=== PATIENT | female | born 1985 | race American Indian/Alaskan Native ===

== ENCOUNTER 2016-08-09 18:37 | Emergency (ER) | payer MEDICAID ==
[2016-08-09 19:50] LABS: Basophils % (Auto) 0.3 % (0.0-1.8); Eosinophils % (Auto) 5.6 % (0.0-4.3); Hematocrit 37.2 % (30.3-42.9); Mean Corpuscular HGB Conc 32 % (30-34); Mean Corpuscular Hemoglobin 29 pg (28-32); Mean Corpuscular Volume 90 fl (79-97); Platelet Count 406 K/mm3 (140-440); Red Blood Count 4.14 M/mm3 (3.65-5.03); Red Cell Distribution Width 16.1 % (13.2-15.2); White Blood Count 6.6 K/mm3 (4.5-11.0)
[2016-08-09 20:00] LABS: INR 0.91 (0.87-1.13)
[2016-08-09 20:01] LABS: Partial Thromboplastin Time 29.7 Sec. (24.2-36.6)
[2016-08-09 20:12] LABS: Anion Gap 18 mmol/L; BUN/Creatinine Ratio 13.33; Blood Urea Nitrogen 8 mg/dL (7-17); Carbon Dioxide 25 mmol/L (22-30); Glucose 106 mg/dL (65-100); Potassium 4.1 mmol/L (3.6-5.0); Sodium 143 mmol/L (137-145)
[2016-08-09] MEDS ORDERED: LOVENOX SUB-Q ONE (20:26)
--- NOTE | 2016-08-09 20:28 | Emergency Department Report ---
ED General Adult HPI - General Chief complaint: Chest Pain Stated complaint: CHEST/CALF PAIN Time Seen by Provider: 08/09/16 20:15 Source: patient, RN notes reviewed Mode of arrival: Wheelchair Limitations: No Limitations - History of Present Illness Initial comments: This is a 31-year-old female. She is previously unknown to me. Recently gave . Has a past medical history of diabetes, asthma, surgical history of cholecystectomy, appendectomy, right salpingectomy, ovarian cystectomy. In June 2016, she was diagnosed at [facility] pulmonary embolus through a nuclear medicine study. Patient indicates this was presumed to be - induced. She has been discharged on Lovenox, and has been compliant with her Lovenox therapy, with the exception of the past 28 hours. As of the time of this dictation, she has missed 3 doses of Lovenox therapy. The patient presents with 2 complaints. Her first complaint is right lower extremity pain. The pain is achy. Does not radiate anywhere. So he worsens with palpation, decreases with rest. No extremity weakness, numbness. There is no tingling. Next complaint is chest pain. The chest pain is central. Patient reports mild nausea but no vomiting. There is no diaphoresis. She has some difficulty with breathing and that she feels that the pain takes her breath away. There is no severe lower abdominal pain. No fevers or chills. No diaphoresis. No irritative or obstructive urinary symptoms. Patient reports no cocaine use. There is no family history of heart disease that she is aware. HEAD OF DRAMA doctor: Dr. Jenkins at [facility] Maternal medicine: [facility] -: Gradual Location: chest, right, lower extremity Quality: aching Consistency: intermittent Improves with: rest Worsens with: movement Associated Symptoms: chest pain - Related Data Previous Rx's Medication Instructions Recorded Last Taken Type Ondansetron [Zofran Odt] 4 mg PO Q8H PRN #10 tab.rapdis 02/29/16 Unknown Rx Enoxaparin [Lovenox] 120 mg SQ Q12HR #30 syringe 08/09/16 Unknown Rx Allergies Allergy/AdvReac Type Severity Reaction Status Date / Time No Known Allergies Allergy Verified 01/01/14 00:22 ED Review of Systems ROS: Stated complaint: CHEST/CALF PAIN Other details as noted in HPI Constitutional: denies: fever Eyes: denies: vision change ENT: denies: epistaxis Respiratory: see HPI Cardiovascular: chest pain Gastrointestinal: denies: abdominal pain Genitourinary: denies: dysuria Musculoskeletal: myalgia Skin: denies: lesions Neurological: denies: weakness Psychiatric: denies: anxiety ED Past Medical Hx - Past Medical History Hx Diabetes: Yes (gestational dm) Hx Asthma: Yes - Surgical History Hx Cholecystectomy: Yes Hx Appendectomy: Yes Additional Surgical History: ovarian cyst removal leep proceedure r) ovary.tube removal csection - Social History Smoking Status: Never Smoker Substance Use Type: None - Medications Home Medications: Home Medications Medication Instructions Recorded Confirmed Last Taken Type Ondansetron [Zofran Odt] 4 mg PO Q8H PRN #10 tab.rapdis 02/29/16 Unknown Rx Enoxaparin [Lovenox] 120 mg SQ Q12HR #30 syringe 08/09/16 Unknown Rx ED Physical Exam - General Limitations: No Limitations General appearance: alert, in no apparent distress - Head Head exam: Present: atraumatic, normocephalic - Eye Eye exam: Present: normal appearance, EOMI. Absent: nystagmus - ENT ENT exam: Present: normal exam, normal orophraynx, mucous membranes moist, normal external ear exam - Neck Neck exam: Present: normal inspection, full ROM. Absent: tenderness, meningismus - Respiratory Respiratory exam: Present: normal lung sounds bilaterally, chest wall tenderness. Absent: respiratory distress, wheezes, rales, rhonchi, stridor - Cardiovascular Cardiovascular Exam: Present: regular rate, normal rhythm, normal heart sounds. Absent: bradycardia, tachycardia, irregular rhythm, systolic murmur, diastolic murmur, rubs, gallop - GI/Abdominal GI/Abdominal exam: Present: soft, normal bowel sounds. Absent: distended, tenderness, guarding, rebound, rigid, pulsatile mass - Extremities Exam Extremities exam: Present: normal inspection, full ROM, normal capillary refill , other (there are 2+ pulses in 4 extremities. The compartments are soft. There is no redness, pus, streaking, asymmetry.). Absent: pedal edema, joint swelling, calf tenderness - Back Exam Back exam: Present: normal inspection, full ROM. Absent: tenderness, CVA tenderness (R), CVA tenderness (L), muscle spasm, paraspinal tenderness, vertebral tenderness - Neurological Exam Neurological exam: Present: alert, oriented X3, normal gait, other (Extraocular movements intact. Tongue midline. No facial droop. Facial sensation intact to light touch in the V1, V2, V3 distribution bilaterally. 5 and 5 strength in 4 extremities.. Sensation is intact to light touch in 4 extremities.). Absent : motor sensory deficit - Psychiatric Psychiatric exam: Present: normal affect, normal mood - Skin Skin exam: Present: warm, dry, intact, normal color. Absent: rash ED Course Vital Signs 08/09/16 08/09/16 08/09/16 18:45 21:48 21:50 Temperature 98.2 F 98.1 F Pulse Rate 88 91 H Respiratory 18 18 18 Rate Blood Pressure 140/96 Blood Pressure 123/86 [Left] O2 Sat by Pulse 100 100 100 Oximetry - Reevaluation(s) Reevaluation #1: 08/09/16 22:03 Differential diagnosis: Pneumonia, GERD, gastritis, right lower extremity DVT, costochondritis, acute coronary syndrome Assessment and plan: 31-year-old female with clinically atypical chest pain, low risk by ANCA score, low risk by heart score, multiple negative cardiac enzymes, unremarkable EKG. Patient has been compliant with her Lovenox therapy with the exception of the past 28 hours. Given this, I think it is unlikely that she has formed a new pulmonary embolus de susan. A d-dimer was negative, I find the patient's clinical history to be low pretest probability, she is saturating consistently well on room air, walks without desaturating, and appears quite comfortable. A right lower extremity DVT study is ordered, but the vascular lab technicians are not currently in house. Therefore, she was treated empirically with Lovenox, and she will be discharged with the Lovenox prescription. she will need to return in the am for the dvt study In addition, she will be given a "good Rx" card to facilitate her Lovenox therapy prescription. She is instructed to follow-up with her outpatient primary care doctor/maternal medicine specialist. I don't believe she requires admission to the hospital for ACS risk stratification, she can follow up with outpatient cardiology or outpatient primary care. 08/09/16 22:08 Reevaluation #2: 08/09/16 22:06 laboratory studies, vital signs, clinical presentation does not appear to be consistent with post delivery preeclampsia. ED Medical Decision Making - Lab Data Result diagrams: 08/09/16 19:38 08/09/16 19:38 Vital Signs 08/09/16 08/09/16 08/09/16 18:45 21:48 21:50 Temperature 98.2 F 98.1 F Pulse Rate 88 91 H Respiratory 18 18 18 Rate Blood Pressure 140/96 Blood Pressure 123/86 [Left] O2 Sat by Pulse 100 100 100 Oximetry Vital Signs 08/09/16 08/09/16 08/09/16 18:45 21:48 21:50 Temperature 98.2 F 98.1 F Pulse Rate 88 91 H Respiratory 18 18 18 Rate Blood Pressure 140/96 Blood Pressure 123/86 [Left] O2 Sat by Pulse 100 100 100 Oximetry Lab Results 08/09/16 08/09/16 08/09/16 Range/Units 19:38 19:38 19:38 WBC 6.6 (4.5-11.0) K/mm3 RBC 4.14 (3.65-5.03) M/mm3 Hgb 12.0 (10.1-14.3) gm/dl Hct 37.2 (30.3-42.9) % MCV 90 (79-97) fl MCH 29 (28-32) pg MCHC 32 (30-34) % RDW 16.1 H (13.2-15.2) % Plt Count 406 (140-440) K/mm3 Lymph % (Auto) 25.6 (13.4-35.0) % [place] % (Auto) 13.9 H (0.0-7.3) % Eos % (Auto) 5.6 H (0.0-4.3) % Baso % (Auto) 0.3 (0.0-1.8) % Lymph # 1.7 (1.2-5.4) K/mm3 [place] # 0.9 H (0.0-0.8) K/mm3 Eos # 0.4 (0.0-0.4) K/mm3 Baso # 0.0 (0.0-0.1) K/mm3 Seg Neutrophils % 54.6 (40.0-70.0) % Seg Neutrophils # 3.6 (1.8-7.7) K/mm3 PT 12.2 (12.2-14.9) Sec. INR 0.91 (0.87-1.13) APTT 29.7 (24.2-36.6) Sec. D-Dimer (0-234) ng/mlDDU Sodium 143 (137-145) mmol/L Potassium 4.1 (3.6-5.0) mmol/L Chloride 104.0 (98-107) mmol/L Carbon Dioxide 25 (22-30) mmol/L Anion Gap 18 mmol/L BUN 8 (7-17) mg/dL Creatinine 0.6 L (0.7-1.2) mg/dL Estimated GFR > 60 ml/min BUN/Creatinine Ratio 13.33 % Glucose 106 H (65-100) mg/dL Calcium 9.0 (8.4-10.2) mg/dL Total Bilirubin (0.1-1.2) mg/dL Direct Bilirubin (0-0.2) mg/dL Indirect Bilirubin mg/dL AST (5-40) units/L ALT (7-56) units/L Alkaline Phosphatase (35-129) units/L Total Creatine Kinase (30-135) units/L Troponin T < 0.010 (0.00-0.029) ng/mL Total Protein (6.3-8.2) g/dL Albumin (3.9-5) g/dL Albumin/Globulin Ratio % Lipase (13-60) units/L 08/09/16 08/09/16 08/09/16 Range/Units 19:38 19:38 19:38 WBC (4.5-11.0) K/mm3 RBC (3.65-5.03) M/mm3 Hgb (10.1-14.3) gm/dl Hct (30.3-42.9) % MCV (79-97) fl MCH (28-32) pg MCHC (30-34) % RDW (13.2-15.2) % Plt Count (140-440) K/mm3 Lymph % (Auto) (13.4-35.0) % [place] % (Auto) (0.0-7.3) % Eos % (Auto) (0.0-4.3) % Baso % (Auto) (0.0-1.8) % Lymph # (1.2-5.4) K/mm3 [place] # (0.0-0.8) K/mm3 Eos # (0.0-0.4) K/mm3 Baso # (0.0-0.1) K/mm3 Seg Neutrophils % (40.0-70.0) % Seg Neutrophils # (1.8-7.7) K/mm3 PT (12.2-14.9) Sec. INR (0.87-1.13) APTT (24.2-36.6) Sec. D-Dimer < 135 (0-234) ng/mlDDU Sodium (137-145) mmol/L Potassium (3.6-5.0) mmol/L Chloride (98-107) mmol/L Carbon Dioxide (22-30) mmol/L Anion Gap mmol/L BUN (7-17) mg/dL Creatinine (0.7-1.2) mg/dL Estimated GFR ml/min BUN/Creatinine Ratio % Glucose (65-100) mg/dL Calcium (8.4-10.2) mg/dL Total Bilirubin 0.4 (0.1-1.2) mg/dL Direct Bilirubin < 0.2 (0-0.2) mg/dL Indirect Bilirubin 0.2 mg/dL AST 25 (5-40) units/L ALT 22 (7-56) units/L Alkaline Phosphatase 63 (35-129) units/L Total Creatine Kinase (30-135) units/L Troponin T < 0.010 (0.00-0.029) ng/mL Total Protein 7.0 (6.3-8.2) g/dL Albumin 3.9 (3.9-5) g/dL Albumin/Globulin Ratio 1.3 % Lipase 30 (13-60) units/L // Range/Units 19:38 WBC (4.5-11.0) K/mm3 RBC (3.65-5.03) M/mm3 Hgb (10.1-14.3) gm/dl Hct (30.3-42.9) % MCV (79-97) fl MCH (28-32) pg MCHC (30-34) % RDW (13.2-15.2) % Plt Count (140-440) K/mm3 Lymph % (Auto) (13.4-35.0) % [place] % (Auto) (0.0-7.3) % Eos % (Auto) (0.0-4.3) % Baso % (Auto) (0.0-1.8) % Lymph # (1.2-5.4) K/mm3 [place] # (0.0-0.8) K/mm3 Eos # (0.0-0.4) K/mm3 Baso # (0.0-0.1) K/mm3 Seg Neutrophils % (40.0-70.0) % Seg Neutrophils # (1.8-7.7) K/mm3 PT (12.2-14.9) Sec. INR (0.87-1.13) APTT (24.2-36.6) Sec. D-Dimer (0-234) ng/mlDDU Sodium (137-145) mmol/L Potassium (3.6-5.0) mmol/L Chloride (98-107) mmol/L Carbon Dioxide (22-30) mmol/L Anion Gap mmol/L BUN (7-17) mg/dL Creatinine (0.7-1.2) mg/dL Estimated GFR ml/min BUN/Creatinine Ratio % Glucose (65-100) mg/dL Calcium (8.4-10.2) mg/dL Total Bilirubin (0.1-1.2) mg/dL Direct Bilirubin (0-0.2) mg/dL Indirect Bilirubin mg/dL AST (5-40) units/L ALT (7-56) units/L Alkaline Phosphatase (35-129) units/L Total Creatine Kinase 119 (30-135) units/L Troponin T (0.00-0.029) ng/mL Total Protein (6.3-8.2) g/dL Albumin (3.9-5) g/dL Albumin/Globulin Ratio % Lipase (13-60) units/L - EKG Data 08/09/16 22:07 normal sinus, 90 bpm, normal intervals, normal axis, not morphologically consistent with STEMI. There is no prior EKG available for comparison. - Radiology Data Radiology results: image reviewed interpreted by me: X-ray chest negative for acute disease. Critical care attestation.: If time is entered above; I have spent that time in minutes in the direct care of this critically ill patient, excluding procedure time. ED Disposition Clinical Impression: Right leg pain, Chest pain Disposition: DISCHARGED TO HOME OR SELFCARE Is pt being admited?: No Does the pt Need Aspirin: No Condition: Stable Instructions: Chest Pain (ED) Additional Instructions: Take the Lovenox therapy as directed. Follow-up with either her primary care doctor for your high risk specialist within the next week. In addition, used the "good Rx" card to help facilitate payment for The Lovenox therapy. Follow-up with a wire spring relay adjuster within the next week as well. I have listed numerous names, phone numbers, addresses of local search engine optimization specialist. Return to the ER right away with new pain, worsened pain, migration of pain, fevers or chills, intractable nausea or vomiting, inability to tolerate liquid feeds. An outpatient right lower extremity DVT study has been ordered for you. Please contact the ultrasound department at the following phone number: [phone] you need to bring the requisition form with you. Prescriptions: Enoxaparin [Lovenox] 120 mg SQ Q12HR #30 syringe Referrals: PRIMARY MD LINO [Primary Care Provider] - 3-5 Days MADHAV DAVID MD [Staff Physician] - 3-5 Days RUBY BHATT MD [Staff Physician] - 3-5 Days LUANNE JACQUES MD [Staff Physician] - 3-5 Days
[2016-08-09] MEDS ORDERED: PEPCID IV ONE (20:30)
[2016-08-09] MEDS ORDERED: BENTYL PO ONE (20:30)
[2016-08-09] MEDS ORDERED: NACL 0.9% 1000 ML 1,000 ML IV ONE (20:31)
[2016-08-09] MEDS ORDERED: TORADOL IV ONE (20:31)
[2016-08-09 20:59] LABS: Alanine Aminotransferase 22 units/L (7-56); Albumin 3.9 g/dL (3.9-5); Albumin/Globulin Ratio 1.3 %; Alkaline Phosphatase 63 units/L (35-129); Bilirubin,Total 0.4 mg/dL (0.1-1.2); Lipase 30 units/L (13-60)
[2016-08-09 21:08] LABS: Bilirubin,Direct < 0.2 mg/dL (0-0.2); Bilirubin,Indirect 0.2 mg/dL
[2016-08-09 21:51] VITALS: BP 123/86
[2016-08-09 22:35] LABS: Bacteria,Urine 1+ /HPF (Negative); Bilirubin,Urine NEG (Negative); Blood,Urine NEG (Negative); Ketones,Urine NEG (Negative); Leukocyte Esterase,Urine MOD (Negative); Mucus,Urine FEW /HPF; Nitrite,Urine NEG (Negative); Protein,Urine <15 mg/dL mg/dL (Negative); Urobilinogen,Urine < 2.0 mg/dL (<2.0)
--- NOTE | 2016-08-10 08:58 | XRay Report ---
CHEST 2 VIEWS INDICATION: Chest pain. COMPARISON: None similar. FINDINGS: PA and lateral chest radiographs demonstrate mild exaggerated cardiomediastinal silhouette and clear lungs, given the inspiration. No pleural effusions or CHF. Unremarkable bones. Questionable cholecystectomy clips. CONCLUSION: No acute disease. Thank you for the opportunity to participate in this patient's care.
== END 2016-08-09 22:52 | disposition home or self-care (01) ==
LOC: ED 18:37
DX: M79.604 Pain in right leg (principal); R07.9 Chest pain, unspecified; J45.909 Unspecified asthma, uncomplicated; Z90.49 Acquired absence of other specified parts of digestive tract
CPT/HCPCS: 36415; 71020; 80048; 80074; 81001; 82550; 83690; 84484; 85025; 85379; 85610; 85730; 93005; 93010; 96361; 96372; 96374; 96375; 99285; J1650; J1885; J7030

== ENCOUNTER 2018-01-15 22:39 | Emergency (ER) | payer MEDICAID ==
[2018-01-16 00:17] LABS: Basophils % (Auto) 0.4 % (0.0-1.8); Eosinophils # (Auto) 1.3 K/mm3 (0.0-0.4); Eosinophils % (Auto) 13.1 % (0.0-4.3); Hematocrit 41.4 % (30.3-42.9); Hemoglobin 13.9 gm/dl (10.1-14.3); Lymphocytes # (Auto) 3.3 K/mm3 (1.2-5.4); Lymphocytes % (Auto) 31.7 % (13.4-35.0); Mean Corpuscular HGB Conc 34 % (30-34); Mean Corpuscular Hemoglobin 30 pg (28-32); Mean Corpuscular Volume 89 fl (79-97); Monocytes # (Auto) 1.2 K/mm3 (0.0-0.8); Monocytes % (Auto) 12.1 % (0.0-7.3); Platelet Count 527 K/mm3 (140-440); Red Blood Count 4.66 M/mm3 (3.65-5.03); Red Cell Distribution Width 13.6 % (13.2-15.2)
--- NOTE | 2018-01-16 00:21 | XRay Report ---
FINAL REPORT EXAM: XR CHEST ROUTINE 2V HISTORY: Shortness of breath COMPARISON: None available. FINDINGS:: Frontal and lateral views of the chest obtained. Cardiac silhouette is within normal limits. No focal consolidation or effusion. No pneumothorax. Visualized bony thorax is grossly intact. IMPRESSION:: No acute findings.
[2018-01-16 00:32] LABS: BUN/Creatinine Ratio 13; Blood Urea Nitrogen 8 mg/dL (7-17); Calcium 9.4 mg/dL (8.4-10.2); Hemolysis Index 0
[2018-01-16] MEDS ORDERED: MAGNESIUM SULFATE 2GM/50ML 2 GM/50 ML BAG IV ONE (02:15)
[2018-01-16] MEDS ORDERED: PROVENTIL IH ONE ×3 (02:15→04:56)
[2018-01-16] MEDS ORDERED: ATROVENT IH ONE (02:15)
[2018-01-16] MEDS ORDERED: ZITHROMAX PO ONE (02:16)
--- NOTE | 2018-01-16 02:23 | Emergency Department Report ---
- General Chief Complaint: Chest Pain Stated Complaint: CHEST TIGHTNESS/BODY PAIN Time Seen by Provider: 01/16/18 01:57 Source: patient Mode of arrival: Ambulatory Limitations: No Limitations - History of Present Illness Initial Comments: 32-year-old female with a past medical history asthma, diabetes, and pulmonary embolism in 2017 due to her presents to the hospital complaining of red and itchy eyes with drainage left greater than right, dry cough, increased wheezing, chest tightness, and global head pressure 3 days. Patient reports a fever of 102.4 yesterday Patient has been using her home nebulizer remission inhaler without improvement and chest tightness and wheezing. Patient complains of bilateral itchy, red, and watery eyes with occasional yellow drainage. Left eye is more red than the right and is sensitive to light. Denies blurred vision and denies sharp or pleuritic chest pain, calf tenderness or edema. Patient is no longer on Lovenox. Her daughter has similar symptoms of runny nose, and congestion. Yesterday she finished her last dose of amoxicillin prescribed after tooth extraction. Patient does have a primary care doctor. Patient does not wear contact lenses - Related Data Previous Rx's Medication Instructions Recorded Last Taken Type Ondansetron [Zofran Odt] 4 mg PO Q8H PRN #10 tab.rapdis 02/29/16 Unknown Rx Enoxaparin [Lovenox] 120 mg SQ Q12HR #30 syringe 08/09/16 Unknown Rx ALBUTEROL Inhaler [ProAir HFA 2 puff IH QID PRN #1 inhalation 01/16/18 Unknown Rx Inhaler] ALBUTEROL NEB's [Proventil 0.083% 2.5 mg IH TID PRN #30 neb 01/16/18 Unknown Rx NEBS] Azithromycin [Zithromax Z-JAVIER] 1 dose PO DAILY 5 Days tab 01/16/18 Unknown Rx Polymyxin B Sulf/Trimethoprim 1 - 2 drops OP Q6H 7 Days drops 01/16/18 Unknown Rx [Polytrim Eye Drops] predniSONE [Deltasone] 40 mg PO BID 5 Days tab 01/16/18 Unknown Rx Allergies Allergy/AdvReac Type Severity Reaction Status Date / Time No Known Allergies Allergy Verified 01/01/14 00:22 ED Review of Systems ROS: Stated complaint: CHEST TIGHTNESS/BODY PAIN Other details as noted in HPI Comment: All other systems reviewed and negative ED Past Medical Hx - Past Medical History Previous Medical History?: Yes Hx Diabetes: Yes Hx Asthma: Yes Additional medical history: PE - Surgical History Hx Cholecystectomy: Yes Hx Appendectomy: Yes Additional Surgical History: ovarian cyst removal leep proceedure r) ovary.tube removal csection. tubal ligation - Social History Smoking Status: Never Smoker Substance Use Type: None - Medications Home Medications: Home Medications Medication Instructions Recorded Confirmed Last Taken Type Ondansetron [Zofran Odt] 4 mg PO Q8H PRN #10 tab.rapdis 02/29/16 Unknown Rx Enoxaparin [Lovenox] 120 mg SQ Q12HR #30 syringe 08/09/16 Unknown Rx ALBUTEROL Inhaler [ProAir HFA 2 puff IH QID PRN #1 inhalation 01/16/18 Unknown Rx Inhaler] ALBUTEROL NEB's [Proventil 0.083% 2.5 mg IH TID PRN #30 neb 01/16/18 Unknown Rx NEBS] Azithromycin [Zithromax Z-JAVIER] 1 dose PO DAILY 5 Days tab 01/16/18 Unknown Rx Polymyxin B Sulf/Trimethoprim 1 - 2 drops OP Q6H 7 Days drops 01/16/18 Unknown Rx [Polytrim Eye Drops] predniSONE [Deltasone] 40 mg PO BID 5 Days tab 01/16/18 Unknown Rx ED Physical Exam - General Limitations: No Limitations - Other Other exam information: General: No limitations, patient is alert in no acute distress Head exam: Atraumatic, normocephalic Eyes exam: Bilateral conjunctiva redness left greater than right with watery discharge. Pupils equal reactive to light. Mild photosensitivity, extraocular movements intact ENT: Moist mucous membrane, normal oropharynx Neck exam: Normal inspection, full range of motion, no meningismus nontender Respiratory exam: Bilateral wheezing with fair air movement. No accessory muscle use Cardiovascular: Normal rate and rhythm, normal heart sounds Abdomen: Soft, nondistended, and nontender, with normal bowel sounds, no rebound, or guarding Extremity: Full range of motion normal inspection no deformity, no calf tenderness or edema Back: Normal Inspection, full range of motion, no tenderness Neurologic: Alert, oriented x3, cranial nerves intact, no motor or sensory deficit Psychiatric: normal affect, normal mood Skin: Warm, dry, intact ED Course Vital Signs 01/15/18 01/16/18 01/16/18 23:35 01:46 02:05 Temperature 98.4 F Pulse Rate 114 H 90 Pulse Rate [ Left Lower Lobe ] Respiratory 18 18 13 Rate Respiratory Rate [Left Lower Lobe] Blood Pressure 152/90 O2 Sat by Pulse 94 97 Oximetry 01/16/18 01/16/18 01/16/18 02:06 02:08 02:09 Temperature Pulse Rate 99 H 97 H 94 H Pulse Rate [ Left Lower Lobe ] Respiratory 19 10 L 13 Rate Respiratory Rate [Left Lower Lobe] Blood Pressure 130/80 130/80 O2 Sat by Pulse 99 98 100 Oximetry 01/16/18 01/16/18 01/16/18 02:10 02:12 02:14 Temperature Pulse Rate 102 H 89 101 H Pulse Rate [ Left Lower Lobe ] Respiratory 10 L 11 L 12 Rate Respiratory Rate [Left Lower Lobe] Blood Pressure 130/80 130/80 130/80 O2 Sat by Pulse 98 98 98 Oximetry 01/16/18 01/16/18 01/16/18 02:16 02:18 02:20 Temperature 98.1 F Pulse Rate 91 H 97 H 95 H Pulse Rate [ Left Lower Lobe ] Respiratory 11 L 13 12 Rate Respiratory Rate [Left Lower Lobe] Blood Pressure 119/80 119/80 119/80 O2 Sat by Pulse 97 98 98 Oximetry 01/16/18 01/16/18 01/16/18 02:22 02:24 02:26 Temperature Pulse Rate 99 H 88 91 H Pulse Rate [ Left Lower Lobe ] Respiratory 14 11 L 19 Rate Respiratory Rate [Left Lower Lobe] Blood Pressure 119/80 119/80 119/80 O2 Sat by Pulse 97 98 96 Oximetry 01/16/18 01/16/18 01/16/18 02:28 02:30 02:32 Temperature Pulse Rate 92 H 89 89 Pulse Rate [ Left Lower Lobe ] Respiratory 12 9 L 11 L Rate Respiratory Rate [Left Lower Lobe] Blood Pressure 119/80 117/77 117/77 O2 Sat by Pulse 98 100 100 Oximetry 01/16/18 01/16/18 01/16/18 02:34 02:35 02:36 Temperature Pulse Rate 93 H 89 Pulse Rate [ 92 H Left Lower Lobe ] Respiratory 13 17 Rate Respiratory 18 Rate [Left Lower Lobe] Blood Pressure 117/77 117/77 O2 Sat by Pulse 100 100 Oximetry 01/16/18 01/16/18 01/16/18 02:38 02:40 02:42 Temperature Pulse Rate 91 H 90 87 Pulse Rate [ Left Lower Lobe ] Respiratory 15 7 L 9 L Rate Respiratory Rate [Left Lower Lobe] Blood Pressure 117/77 117/77 130/80 O2 Sat by Pulse 100 100 100 Oximetry 01/16/18 01/16/18 01/16/18 02:44 02:45 02:46 Temperature Pulse Rate 92 H 95 H Pulse Rate [ 92 H Left Lower Lobe ] Respiratory 13 14 Rate Respiratory 18 Rate [Left Lower Lobe] Blood Pressure 130/80 122/66 O2 Sat by Pulse 100 100 Oximetry 01/16/18 01/16/18 01/16/18 02:48 02:50 02:52 Temperature Pulse Rate 94 H 93 H 105 H Pulse Rate [ Left Lower Lobe ] Respiratory 16 13 13 Rate Respiratory Rate [Left Lower Lobe] Blood Pressure 122/66 122/66 122/66 O2 Sat by Pulse 98 100 100 Oximetry 01/16/18 01/16/18 01/16/18 02:54 02:56 02:58 Temperature Pulse Rate 102 H 100 H 100 H Pulse Rate [ Left Lower Lobe ] Respiratory 16 10 L 14 Rate Respiratory Rate [Left Lower Lobe] Blood Pressure 122/66 122/66 122/66 O2 Sat by Pulse 100 100 100 Oximetry 01/16/18 01/16/18 01/16/18 03:00 03:02 03:04 Temperature Pulse Rate 97 H 95 H 94 H Pulse Rate [ Left Lower Lobe ] Respiratory 11 L 9 L 9 L Rate Respiratory Rate [Left Lower Lobe] Blood Pressure 122/66 117/56 117/56 O2 Sat by Pulse 100 100 100 Oximetry 01/16/18 01/16/18 01/16/18 03:06 03:08 03:10 Temperature Pulse Rate 97 H 96 H 96 H Pulse Rate [ Left Lower Lobe ] Respiratory 13 16 9 L Rate Respiratory Rate [Left Lower Lobe] Blood Pressure 117/56 117/56 117/56 O2 Sat by Pulse 100 100 100 Oximetry 01/16/18 01/16/18 01/16/18 03:12 03:14 03:16 Temperature Pulse Rate 102 H 97 H 99 H Pulse Rate [ Left Lower Lobe ] Respiratory 10 L 11 L 14 Rate Respiratory Rate [Left Lower Lobe] Blood Pressure 122/66 122/66 124/67 O2 Sat by Pulse 100 100 100 Oximetry 01/16/18 01/16/18 01/16/18 03:18 03:20 03:22 Temperature Pulse Rate 98 H 99 H 96 H Pulse Rate [ Left Lower Lobe ] Respiratory 13 18 12 Rate Respiratory Rate [Left Lower Lobe] Blood Pressure 124/67 124/67 124/67 O2 Sat by Pulse 100 99 99 Oximetry 01/16/18 01/16/18 01/16/18 03:24 03:26 03:28 Temperature Pulse Rate 101 H 106 H 100 H Pulse Rate [ Left Lower Lobe ] Respiratory 15 15 17 Rate Respiratory Rate [Left Lower Lobe] Blood Pressure 124/67 124/67 124/67 O2 Sat by Pulse 98 98 98 Oximetry 01/16/18 01/16/18 01/16/18 03:30 03:32 03:34 Temperature Pulse Rate 100 H 105 H 100 H Pulse Rate [ Left Lower Lobe ] Respiratory 13 14 9 L Rate Respiratory Rate [Left Lower Lobe] Blood Pressure 129/72 129/72 129/72 O2 Sat by Pulse 97 98 99 Oximetry 01/16/18 01/16/18 01/16/18 03:36 03:38 03:40 Temperature Pulse Rate 105 H 99 H 98 H Pulse Rate [ Left Lower Lobe ] Respiratory 16 15 12 Rate Respiratory Rate [Left Lower Lobe] Blood Pressure 129/72 129/72 129/72 O2 Sat by Pulse 97 98 97 Oximetry 01/16/18 01/16/18 01/16/18 03:42 03:44 03:46 Temperature Pulse Rate 95 H 100 H 96 H Pulse Rate [ Left Lower Lobe ] Respiratory 15 20 17 Rate Respiratory Rate [Left Lower Lobe] Blood Pressure 129/72 129/72 120/77 O2 Sat by Pulse 98 95 98 Oximetry 01/16/18 01/16/18 01/16/18 03:48 03:50 03:52 Temperature Pulse Rate 102 H 99 H 101 H Pulse Rate [ Left Lower Lobe ] Respiratory 13 12 17 Rate Respiratory Rate [Left Lower Lobe] Blood Pressure 120/77 120/77 120/77 O2 Sat by Pulse 97 98 96 Oximetry 01/16/18 01/16/18 01/16/18 03:54 03:56 03:58 Temperature Pulse Rate 98 H 94 H 102 H Pulse Rate [ Left Lower Lobe ] Respiratory 20 13 14 Rate Respiratory Rate [Left Lower Lobe] Blood Pressure 120/77 120/77 120/77 O2 Sat by Pulse 95 99 Oximetry 01/16/18 05:10 Temperature Pulse Rate Pulse Rate [ 94 H Left Lower Lobe ] Respiratory Rate Respiratory 18 Rate [Left Lower Lobe] Blood Pressure O2 Sat by Pulse Oximetry - Reevaluation(s) Reevaluation #1: 01/16/18 04:56 Wheezing improving after initial round of albuterol 10, Atrovent, Solu-Medrol, and magnesium. Additional albuterol 7.5 mg ordered for residual and chest tightness 01/16/18 06:30 Patient feeling better with additional treatment ED Medical Decision Making - Lab Data Result diagrams: 01/15/18 23:45 01/15/18 23:45 Lab Results 01/15/18 01/15/18 01/16/18 Range/Units 23:45 23:45 02:45 WBC 10.3 (4.5-11.0) K/mm3 RBC 4.66 (3.65-5.03) M/mm3 Hgb 13.9 (10.1-14.3) gm/dl Hct 41.4 (30.3-42.9) % MCV 89 (79-97) fl MCH 30 (28-32) pg MCHC 34 (30-34) % RDW 13.6 (13.2-15.2) % Plt Count 527 H (140-440) K/mm3 Lymph % (Auto) 31.7 (13.4-35.0) % [place] % (Auto) 12.1 H (0.0-7.3) % Eos % (Auto) 13.1 H (0.0-4.3) % Baso % (Auto) 0.4 (0.0-1.8) % Lymph # 3.3 (1.2-5.4) K/mm3 Child[place] # 1.2 H (0.0-0.8) K/mm3 Eos # 1.3 H (0.0-0.4) K/mm3 Baso # 0.0 (0.0-0.1) K/mm3 Seg Neutrophils % 42.7 (40.0-70.0) % Seg Neutrophils # 4.4 (1.8-7.7) K/mm3 D-Dimer 344.78 H (0-234) ng/mlDDU Sodium 138 (137-145) mmol/L Potassium 4.0 (3.6-5.0) mmol/L Chloride 99.9 (98-107) mmol/L Carbon Dioxide 26 (22-30) mmol/L Anion Gap 16 mmol/L BUN 8 (7-17) mg/dL Creatinine 0.6 L (0.7-1.2) mg/dL Estimated GFR > 60 ml/min BUN/Creatinine Ratio 13 % Glucose 117 H (65-100) mg/dL Calcium 9.4 (8.4-10.2) mg/dL Troponin T < 0.010 (0.00-0.029) ng/mL - EKG Data -: EKG Interpreted by Me EKG shows normal: sinus rhythm, axis (qrs 35), QRS complexes (qrsd 90), ST-T waves (no stemi) Rate: tachycardia (100) - EKG Data When compared to previous EKG there are: no significant change - Radiology Data Radiology results: report reviewed FINAL REPORT EXAM: XR CHEST ROUTINE 2V HISTORY: Shortness of breath COMPARISON: None available. FINDINGS:: Frontal and lateral views of the chest obtained. Cardiac silhouette is within normal limits. No focal consolidation or effusion. No pneumothorax. Visualized bony thorax is grossly intact. IMPRESSION:: No acute findings. CT ANGIO CHEST IMPRESSION: No pulmonary embolism or other acute finding. Small hiatal hernia. - Medical Decision Making Symptoms likely due to viral decision given similar symptoms with her daughter. The patient will be covered with Z-Javier and antibiotic eyedrops for conjunctivitis medications for asthma exacerbation will also be provided. Outpatient follow-up will be recommended - Differential Diagnosis conjunctivitis, viral syndrome, bronchitis, pneumonia, sinusitis Critical Care Time: No Critical care attestation.: If time is entered above; I have spent that time in minutes in the direct care of this critically ill patient, excluding procedure time. ED Disposition Clinical Impression: Acute bronchitis, Conjunctivitis Disposition: DC-01 TO HOME OR SELFCARE Is pt being admited?: No Does the pt Need Aspirin: No Condition: Stable Instructions: Acute Bronchitis (ED), Conjunctivitis (ED) Additional Instructions: Take the medication is prescribed. Return is symptoms worsen as indicated by your discharge instructions. Take Motrin or Tylenol as needed for pain or fever. Follow-up with your doctor. Prescriptions: ALBUTEROL Inhaler [ProAir HFA Inhaler] 2 puff IH QID PRN #1 inhalation PRN Reason: Shortness Of Breath ALBUTEROL NEB's [Proventil 0.083% NEBS] 2.5 mg IH TID PRN #30 neb PRN Reason: Wheezing Azithromycin [Zithromax Z-JAVIER] 1 dose PO DAILY 5 Days tab Polymyxin B Sulf/Trimethoprim [Polytrim Eye Drops] 1 - 2 drops OP Q6H 7 Days drops predniSONE [Deltasone] 40 mg PO BID 5 Days tab Referrals: LUDWIN HZOU MD [Primary Care Provider] - 3-5 Days Time of Disposition: 06:38
--- NOTE | 2018-01-16 04:44 | Cat Scan Report ---
FINAL REPORT EXAM: CT ANGIO CHEST HISTORY: elevated ddimer, hx of pe TECHNIQUE: CT imaging obtained through the chest in pulmonary angiographic phase following intravenous administration of contrast. Transaxial, Coronal and sagittal reformats with maximal intensity projections are provided. PRIORS: None. FINDINGS: Normal caliber main pulmonary artery. Well opacified pulmonary arterial tree. No pulmonary embolism. No pericardial effusion. Thoracic aorta is normal in course and caliber. No periaortic fluid or stranding. No pneumothorax, effusion or focal airspace disease. The central airways are patent. No bronchiectasis. Imaged portion of the upper abdomen is remarkable for a small hiatal hernia. The superficial soft tissues are unremarkable. No acute bony abnormality or worrisome osseous lesions identified. IMPRESSION: No pulmonary embolism or other acute finding. Small hiatal hernia.
[2018-01-16 07:12] VITALS: BP 120/82
== END 2018-01-16 07:12 | disposition home or self-care (01) ==
LOC: ED 22:39
DX: J20.9 Acute bronchitis, unspecified (principal); H10.9 Unspecified conjunctivitis; E11.9 Type 2 diabetes mellitus without complications; J45.909 Unspecified asthma, uncomplicated; Z86.711 Personal history of pulmonary embolism; Z90.49 Acquired absence of other specified parts of digestive tract; Z98.51 Tubal ligation status
CPT/HCPCS: 36415; 71046; 71275; 80048; 84484; 85025; 85379; 93005; 93010; 94640; 96365; 96375; 99285; J2930; J3475; Q9967

== ENCOUNTER 2018-01-20 00:36 | Emergency (ER) | payer MEDICAID ==
[2018-01-20 01:29] LABS: Basophils # (Auto) 0.1 K/mm3 (0.0-0.1); Basophils % (Auto) 0.7 % (0.0-1.8); Eosinophils # (Auto) 0.4 K/mm3 (0.0-0.4); Lymphocytes # (Auto) 3.3 K/mm3 (1.2-5.4); Lymphocytes % (Auto) 28.1 % (13.4-35.0); Mean Corpuscular HGB Conc 36 % (30-34); Mean Corpuscular Hemoglobin 32 pg (28-32); Mean Corpuscular Volume 88 fl (79-97); Monocytes # (Auto) 1.4 K/mm3 (0.0-0.8); Monocytes % (Auto) 12.2 % (0.0-7.3); Platelet Count 547 K/mm3 (140-440); Red Blood Count 4.55 M/mm3 (3.65-5.03); Red Cell Distribution Width 13.9 % (13.2-15.2)
[2018-01-20 01:37] LABS: Hematocrit 39.9 % (30.3-42.9); Hemoglobin 14.5 gm/dl (10.1-14.3)
--- NOTE | 2018-01-20 02:02 | Emergency Department Report ---
HPI - General Chief Complaint: Syncope Time Seen by Provider: 01/20/18 01:14 - HPI HPI: 32-year-old -[place] female presents to the emergency department after having a witnessed syncopal episode while with her mother at a restaurant. The patient says that she started feeling very dizzy and was standing next the table when suddenly she passed out, fell over, hit her head. Since being in the emergency department, the patient is awake and alert but does complain of a headache, some neck pain and some generalized weakness and dizziness. The patient was recently here 3 days ago for some URI type symptoms and was discharged home with a Z-Stefan. The patient does have a history of previous pulmonary embolism which was also ruled out [address]. She did not take anything and was not given anything for her symptoms prior to presentation. She denies any chest pain, fever, nausea, vomiting or shortness of breath. ED Past Medical Hx - Past Medical History Hx Diabetes: Yes Hx Asthma: Yes Additional medical history: PE - Surgical History Hx Cholecystectomy: Yes Hx Appendectomy: Yes Additional Surgical History: ovarian cyst removal leep proceedure r) ovary.tube removal csection. tubal ligation - Social History Smoking Status: Never Smoker Substance Use Type: None - Medications Home Medications: Home Medications Medication Instructions Recorded Confirmed Last Taken Type Ondansetron [Zofran Odt] 4 mg PO Q8H PRN #10 tab.rapdis 02/29/16 Unknown Rx Enoxaparin [Lovenox] 120 mg SQ Q12HR #30 syringe 08/09/16 Unknown Rx ALBUTEROL Inhaler [ProAir HFA 2 puff IH QID PRN #1 inhalation 01/16/18 Unknown Rx Inhaler] ALBUTEROL NEB's [Proventil 0.083% 2.5 mg IH TID PRN #30 neb 01/16/18 Unknown Rx NEBS] Azithromycin [Zithromax Z-STEFAN] 1 dose PO DAILY 5 Days tab 01/16/18 Unknown Rx Polymyxin B Sulf/Trimethoprim 1 - 2 drops OP Q6H 7 Days drops 01/16/18 Unknown Rx [Polytrim Eye Drops] predniSONE [Deltasone] 40 mg PO BID 5 Days tab 01/16/18 Unknown Rx Nitrofurantoin Monohyd/M-Cryst 100 mg PO BID #14 capsule 01/20/18 Unknown Rx [Macrobid 100 mg Capsule] ED Review of Systems ROS: Stated complaint: SYNCOPE Other details as noted in HPI Comment: All other systems reviewed and negative Constitutional: denies: chills, fever Eyes: denies: eye pain, eye discharge, vision change ENT: denies: ear pain, throat pain Respiratory: denies: cough, shortness of breath, wheezing Cardiovascular: syncope. denies: chest pain Gastrointestinal: denies: abdominal pain, nausea, diarrhea Genitourinary: denies: urgency, dysuria, discharge Musculoskeletal: denies: back pain, joint swelling, arthralgia Skin: denies: rash, lesions Neurological: headache. denies: numbness Physical Exam - Physical Exam Vital Signs: Vital Signs 01/20/18 01/20/18 01/20/18 00:53 00:54 00:55 Pulse Rate 87 90 Respiratory 25 H 13 15 Rate Blood Pressure O2 Sat by Pulse 97 Oximetry 01/20/18 01/20/18 01/20/18 00:57 00:59 01:01 Pulse Rate 91 H 91 H 96 H Respiratory 20 23 24 Rate Blood Pressure 128/90 O2 Sat by Pulse 97 97 Oximetry 01/20/18 01:27 Pulse Rate Respiratory 18 Rate Blood Pressure O2 Sat by Pulse 98 Oximetry Physical Exam: GENERAL: The patient is well-developed well-nourished. HENT: Normocephalic. Atraumatic. Patient has moist mucous membranes. EYES: Extraocular motions are intact. Pupils equal reactive to light bilaterally. No nystagmus. NECK: Supple. Trachea is midline. CHEST/LUNGS: Clear to auscultation. There is no respiratory distress noted. HEART/CARDIOVASCULAR: Regular. There is no tachycardia. There is no murmur. ABDOMEN: Abdomen is soft, nontender. Patient has normal bowel sounds. There is no abdominal distention. SKIN: Skin is warm and dry. NEURO: The patient is awake, alert, and oriented. The patient is cooperative. The patient has no focal neurologic deficits. The patient has normal speech. Cranial nerves II through XII grossly intact. MUSCULOSKELETAL: There is no tenderness or deformity. There is no limitation range of motion. There is no evidence of acute injury. ED Course Vital Signs 01/20/18 01/20/18 01/20/18 00:53 00:54 00:55 Pulse Rate 87 90 Respiratory 25 H 13 15 Rate Blood Pressure O2 Sat by Pulse 97 Oximetry 01/20/18 01/20/18 01/20/18 00:57 00:59 01:01 Pulse Rate 91 H 91 H 96 H Respiratory 20 23 24 Rate Blood Pressure 128/90 O2 Sat by Pulse 97 97 Oximetry 01/20/18 01:27 Pulse Rate Respiratory 18 Rate Blood Pressure O2 Sat by Pulse 98 Oximetry ED Medical Decision Making - Lab Data Result diagrams: 01/20/18 01:05 01/20/18 02:27 - EKG Data -: EKG Interpreted by Az EKG shows normal: sinus rhythm, axis, intervals, QRS complexes, ST-T waves Rate: normal - EKG Data When compared to previous EKG there are: previous EKG unavailable Interpretation: normal EKG - Radiology Data Radiology results: report reviewed PROCEDURE: CT CERVICAL SPINE WO CON TECHNIQUE: Computerized tomography of the cervical spine was performed from the skull base to T1 without contrast material. HISTORY: fall, Syncope, neck pain COMPARISON: No prior studies are available for comparison. FINDINGS: There is straightening of the cervical spine. There are no fractures or malalignments. The disc spaces are normal. Facet joints are intact without evidence of dislocation. Prevertebral soft tissues are normal in thickness per IMPRESSION: No significant abnormality. PROCEDURE: CT HEAD/BRAIN WO CON TECHNIQUE: Computerized tomography of the head was performed without contrast material. HISTORY: Syncope, Headache COMPARISON: No prior studies are available for comparison. FINDINGS: Skull and scalp: Normal. Paranasal sinuses: There is fluid in the sphenoid sinus. There is no hemorrhage, edema, mass, mass effect or midline shift. There is sphenoid sinusitis.. Ventricles and subarachnoid spaces: Normal. Cerebrum: No evidence of hemorrhage, acute infarction or mass . Cerebellum and brainstem: No evidence of hemorrhage, acute infarction or mass. Vasculature: Normal. Comments: None. IMPRESSION: Normal Examination Transcribed By: CO Dictated By: SHARONA FRIAS MD Electronically Authenticated By: SHARONA FRIAS MD Signed Date/Time: 01/20/18 0320 - Medical Decision Making This patient presented after a witnessed syncopal episode. She complained of headache and neck pain but no obvious deformity or trauma. CT of the head did not show any bleed, shift, mass, skull fracture or any other acute process. CT of the cervical spine did not show any fracture, subluxation or any acute process as well. Her labs were mostly unremarkable except for that she has a mild urinary tract infection. No sign of systemic infection, electrolyte abnormalities, renal insufficiency, glucose abnormalities. She had a negative troponin. EKG does not show any ST elevation ID, ischemia or dysrhythmia. The patient was reevaluated multiple times and multiple hours and is feeling improved. She has a small amount of dizziness but otherwise was able to ambulate throughout the emergency department and appeared stable. She does not have any focal, motor or sensory deficits in her cranial nerves are intact. The differential includes orthostatic hypotension, vasovagal, atypical seizure, TIA versus other. However at this time the patient appears stable and safe for discharge home. She has good follow-up with a primary care physician, Dr. Feliz. She was given antibiotics for the urinary tract infection and a referral for neurology. She will return to the ER with any worsening of her symptoms or any acute distress. - Differential Diagnosis orthostatic hypotension, vasovagal, atypical seizure, hypoglycemia, dysrhyt Critical Care Time: No Critical care attestation.: If time is entered above; I have spent that time in minutes in the direct care of this critically ill patient, excluding procedure time. ED Disposition Clinical Impression: Dizziness Syncope Qualifiers: Syncope type: unspecified Qualified Code(s): R55 - Syncope and collapse UTI (urinary tract infection) Qualifiers: Urinary tract infection type: acute cystitis Hematuria presence: without hematuria Qualified Code(s): N30.00 - Acute cystitis without hematuria Disposition: TO HOME OR SELFCARE Is pt being admited?: No Condition: Stable Instructions: Urinary Tract Infection in Women (ED), Syncope (ED), Dizziness ( ED) Additional Instructions: Please follow-up with your primary care physician in the next few days. I have given her a referral for a local neurologist, Dr. Mart, to follow up regarding your episode of passing out and her dizziness. Return to the emergency department with any recurrence of passing out, any worsening of your symptoms, or if any acute distress. Prescriptions: Nitrofurantoin Monohyd/M-Cryst [Macrobid 100 mg Capsule] 100 mg PO BID #14 capsule Referrals: LUDWIN FELIZ MD [Primary Care Provider] - INESSA BIANCHI MD [Staff Physician] - 2-3 Days Time of Disposition: 06:26
[2018-01-20 02:03] LABS: Alanine Aminotransferase TNR units/L (7-56); Albumin TNR g/dL (3.9-5); BUN/Creatinine Ratio TNR; Blood Urea Nitrogen TNR mg/dL (7-17); Calcium TNR mg/dL (8.4-10.2)
[2018-01-20 02:04] LABS: Hemolysis Index TNR
[2018-01-20] MEDS ORDERED: TYLENOL ONE (02:30)
[2018-01-20] MEDS ORDERED: TYLENOL PO ONE (02:35)
[2018-01-20 03:12] LABS: Alanine Aminotransferase 35 units/L (7-56); Albumin 3.8 g/dL (3.9-5); BUN/Creatinine Ratio 27; Blood Urea Nitrogen 19 mg/dL (7-17); Calcium 9.4 mg/dL (8.4-10.2); Hemolysis Index 11
--- NOTE | 2018-01-20 03:27 | Cat Scan Report ---
FINAL REPORT PROCEDURE: CT HEAD/BRAIN WO CON TECHNIQUE: Computerized tomography of the head was performed without contrast material. HISTORY: Syncope, Headache COMPARISON: No prior studies are available for comparison. FINDINGS: Skull and scalp: Normal. Paranasal sinuses: There is fluid in the sphenoid sinus. There is no hemorrhage, edema, mass, mass effect or midline shift. There is sphenoid sinusitis.. Ventricles and subarachnoid spaces: Normal. Cerebrum: No evidence of hemorrhage, acute infarction or mass . Cerebellum and brainstem: No evidence of hemorrhage, acute infarction or mass. Vasculature: Normal. Comments: None. IMPRESSION: Normal Examination
--- NOTE | 2018-01-20 03:28 | Cat Scan Report ---
FINAL REPORT PROCEDURE: CT CERVICAL SPINE WO CON TECHNIQUE: Computerized tomography of the cervical spine was performed from the skull base to T1 without contrast material. HISTORY: fall, Syncope, neck pain COMPARISON: No prior studies are available for comparison. FINDINGS: There is straightening of the cervical spine. There are no fractures or malalignments. The disc spaces are normal. Facet joints are intact without evidence of dislocation. Prevertebral soft tissues are normal in thickness per IMPRESSION: No significant abnormality.
[2018-01-20] MEDS ORDERED: NACL 0.9% 1000 ML 1,000 ML IV ONE (03:56)
[2018-01-20] MEDS ORDERED: TORADOL IV ONE (03:56)
[2018-01-20 04:56] LABS: Bacteria,Urine 2+ /HPF (Negative); Bilirubin,Urine NEG (Negative); Blood,Urine SM (Negative); Color,Urine Yellow (Yellow); Hyaline Casts,Urine 12 /LPF; Mucus,Urine 3+ /HPF; Protein,Urine <15 mg/dL mg/dL (Negative); Urobilinogen,Urine < 2.0 mg/dL (<2.0)
[2018-01-20] MEDS ORDERED: ROCEPHIN/NS 1 GM/50 ML 1 GM/50 ML BAG IV ONE (05:01)
[2018-01-20 06:53] VITALS: BP 120/76
== END 2018-01-20 06:58 | disposition home or self-care (01) ==
LOC: ED 00:36
DX: N30.00 Acute cystitis without hematuria (principal); R55 Syncope and collapse; M54.2 Cervicalgia; E11.9 Type 2 diabetes mellitus without complications; J45.909 Unspecified asthma, uncomplicated; Z88.6 Allergy status to analgesic agent
CPT/HCPCS: 36415; 70450; 72125; 80053; 81001; 84443; 84484; 84703; 85025; 93005; 93010; 96361; 96365; 96375; 99285; J0696; J1885; J7030